=== PATIENT | male | born 1960 | race African-American/Black ===

== ENCOUNTER 2017-01-10 18:21 | Emergency (ER) | payer SELFPAY ==
[~2017-01-10] VITALS: Ht 177.8 cm; Wt 80.0 kg
[2017-01-10 18:23] VITALS: BP 160/80
== END 2017-01-10 19:49 | disposition left against medical advice (07) ==
LOC: ER 18:31
DX: M54.5 Low back pain (principal); Z53.21 Procedure and treatment not carried out due to patient leaving prior to being seen by health care provider

== ENCOUNTER 2017-01-10 23:43 | Inpatient (IN) | payer MEDICAID, OTHER ==
[~2017-01-10] VITALS: Ht 185.4 cm; Wt 95.3 kg
[2017-01-11] MEDS ORDERED: MORPHINE SULFATE 4 MG/ML CPJ (NOT FOR IM USE) IV STA (06:52)
[2017-01-11] MEDS ORDERED: ONDANSETRON HCL 4MG/2ML VIAL IV STA (06:52)
[2017-01-11 07:17] LABS: BASOPHILS % 0.6 % (0.0-2.0); EOSINOPHILS % 2.2 % (0.0-5.0); HEMATOCRIT. 40.3 % (42.0-52.0); HEMOGLOBIN. 13.2 g/dL (14.0-18.0); LYMPHOCYTES % 18.2 % (20.0-50.0); MEAN CORPUSCULAR HEMOGLOBIN 30.5 pg (28.0-32.0); MEAN CORPUSCULAR VOLUME 92.8 fL (80.0-94.0); MEAN PLATELET VOLUME 10.3 fl (7.4-10.4); MONOCYTES % 9.5 % (2.0-8.0); NEUTROPHILS % 69.5 % (40.0-76.0); PLATELET 237 x1000/uL (130-400); RED BLOOD CELL COUNT 4.35 mill/uL (4.7-6.1); RED CELL DISTRIBUTION WIDTH 13.3 % (11.6-14.6)
[2017-01-11 07:29] LABS: INR 1.1; PARTIAL THROMBOPLASTIN TIME 26.6 sec (23.4-31.0)
[2017-01-11] MEDS ORDERED: CLONIDINE 0.1MG TABLET PO ONE (07:30)
[2017-01-11] MEDS ORDERED: ASPIRIN 81MG TABLET PO ONE (07:30)
[2017-01-11] MEDS ORDERED: NITROGLYCERIN OINT 1GM/INCH UDPKT TD ONE (07:30)
[2017-01-11 07:31] LABS: CARBON DIOXIDE 27 mEq/L (21-32); CHLORIDE 103 mEq/L (98-107)
[2017-01-11 07:34] LABS: *AMPHETAMINES SCREEN URINE NEGATIVE (NEGATIVE); *BARBITURATES SCREEN URINE NEGATIVE (NEGATIVE); *BENZODIAZEPINES SCREEN URINE NEGATIVE (NEGATIVE); *COCAINE SCREEN URINE PRESUMTIVE POSITIVE (NEGATIVE); CANNABINOID URINE SCREEN NEGATIVE (NEGATIVE); METHADONE URINE SCREEN NEGATIVE (NEGATIVE); OPIATES URINE SCREEN NEGATIVE (NEGATIVE); PHENCYCLIDINE URINE SCREEN NEGATIVE (NEGATIVE)
[2017-01-11 07:43] LABS: TROPONIN I 0.61 ng/mL (0.00-0.04)
[2017-01-11] MEDS ORDERED: ENOXAPARIN 100MG/ML SYR SUBCUT ONE (08:00)
[2017-01-11 11:00] VITALS: BP 150/94
[2017-01-11] MEDS ORDERED: ASPIRIN 81MG EC TABLET PO SCH (11:15)
[2017-01-11] MEDS ORDERED: GUAIFENESIN 200MG/10ML SUGAR FREE UDC PO PRN (11:15)
[2017-01-11] MEDS ORDERED: ACETAMINOPHEN 325MG TABLET PO PRN (11:15)
[2017-01-11] MEDS ORDERED: ONDANSETRON HCL 4MG/2ML VIAL IV PRN (11:15)
[2017-01-11] MEDS ORDERED: DIPHENHYDRAMINE 50MG/ML VIAL IV PRN (11:15)
[2017-01-11] MEDS ORDERED: MAGNESIUM/ALUMINUM HYDROXIDE/SIMETHICONE 30ML UDC PO PRN (11:15)
[2017-01-11] MEDS ORDERED: CLONIDINE 0.1MG TABLET PO PRN (11:15)
[2017-01-11] MEDS ORDERED: CLOPIDOGREL 75MG TABLET PO SCH ×2 (13:00)
[2017-01-11 13:37] LABS: T4 FREE 1.06 ng/dL (0.76-1.46)
[2017-01-11] MEDS ORDERED: SODIUM CHLORIDE 0.9% INJ 3ML FLUSH IVF SCH (14:00)
[2017-01-11] MEDS: HYDROCODONE/APAP 7.5/325MG 1 TAB TABLET PO PRN (14:02)
[2017-01-11] MEDS: ENOXAPARIN 100MG/ML SYR SUBCUT SCH (14:04)
[2017-01-11 15:16] VITALS: BP 150/94
[2017-01-11 15:35] LABS: CREATINE KINASE MB FRACTION 4.5 ng/mL (0.5-3.6)
[2017-01-11 15:45] LABS: TROPONIN I 0.46 ng/mL (0.00-0.04)
[2017-01-11 16:00] VITALS: BP 166/116
[2017-01-11 20:00] VITALS: BP 116/68
[2017-01-11] MEDS: AMLODIPINE 5MG TABLET PO SCH (21:39)
[2017-01-11 23:26] LABS: CREATINE KINASE MB FRACTION 2.9 ng/mL (0.5-3.6); TROPONIN I 0.37 ng/mL (0.00-0.04)
[2017-01-12] VITALS: BP 149/78
[2017-01-12 04:00] VITALS: BP 143/74
[2017-01-12] MEDS: ENOXAPARIN 100MG/ML SYR SUBCUT SCH ×2 (06:03→13:25)
[2017-01-12 06:49] LABS: CREATINE KINASE MB FRACTION 2.2 ng/mL (0.5-3.6)
[2017-01-12 08:00] VITALS: BP 163/102
[2017-01-12] MEDS: HYDROCODONE/APAP 7.5/325MG 1 TAB TABLET PO PRN (08:13)
[2017-01-12] MEDS ORDERED: ASPIRIN 81MG TABLET PO SCH (09:00)
[2017-01-12] MEDS ORDERED: CLOPIDOGREL 75MG TABLET PO SCH (09:00)
[2017-01-12] MEDS: AMLODIPINE 5MG TABLET PO SCH (11:46)
[2017-01-12 11:49] VITALS: BP 153/95
[2017-01-12] MEDS: IBUPROFEN 600MG TABLET PO PRN ×2 (13:24→18:54)
[2017-01-12] MEDS ORDERED: LOSARTAN POTASSIUM 50 MG TABLET PO SCH (14:45)
[2017-01-12 18:52] VITALS: BP 164/90
[2017-01-12 18:54] VITALS: BP 164/90
[2017-01-12] MEDS ORDERED: ATORVASTATIN CALCIUM 20MG TABLET PO SCH (21:00)
== END 2017-01-12 20:05 | disposition home or self-care (01) | DRG 190 ==
LOC: ER 01-11 08:04 → 6WST 01-11 08:15 → ENRESERV 01-11 10:10
PROVIDERS: ADMIT Internal Medicine; ATTEND Internal Medicine
DX: I21.4 Non-ST elevation (NSTEMI) myocardial infarction (principal); I11.0 Hypertensive heart disease with heart failure; E78.5 Hyperlipidemia, unspecified; F14.10 Cocaine abuse, uncomplicated; G89.29 Other chronic pain; S40.012A Contusion of left shoulder, initial encounter; M54.42 Lumbago with sciatica, left side; Z53.29 Procedure and treatment not carried out because of patient's decision for other reasons; Z59.0 Homelessness; Z79.02 Long term (current) use of antithrombotics/antiplatelets; Z79.82 Long term (current) use of aspirin; Z82.49 Family history of ischemic heart disease and other diseases of the circulatory system; Z83.3 Family history of diabetes mellitus; Z86.73 Personal history of transient ischemic attack (TIA), and cerebral infarction without residual deficits; Z91.19 Patient's noncompliance with other medical treatment and regimen; V19.9XXA Pedal cyclist (driver) (passenger) injured in unspecified traffic accident, initial encounter; Y93.89 Activity, other specified; Y92.89 Other specified places as the place of occurrence of the external cause; Y99.8 Other external cause status
CPT/HCPCS: 36415; 71010; 73030; 80053; 80061; 80305; 82550; 82553; 83036; 83690; 83880; 84439; 84443; 84484; 85025; 85379; 85610; 85730; 93005; 93306; 93970; 96372; 96374; 96375; 97162; 99291; J1650; J2270; J2405